=== PATIENT | male | born 1935 | race Asian ===

== ENCOUNTER 2017-11-18 18:12 | Emergency (ER) | payer OTHER ==
[~2017-11-18] VITALS: Ht 154.9 cm; Wt 65.8 kg
--- NOTE | ~2017-11-18 | EKG ---
[place] [address] [facility] [place] [address] ELECTROCARDIOGRAM REPORT Name: BRY PELAYO Room #: DEP ALEJA Hollins#: [id number] Admission: 11/18/17 Attend Phys: Discharge: 11/18/17 Date of : 39 Report #: [id number] THIS REPORT FOR: //name// [facility] ED Test Date: 2017-11-18 Test Time: 18:51:43 Pat Name: BRY PELAYO Department: Room: Gender: M Vending Manager: FAM : 1935 Requested By: José Miguel Jimenez Order Number: [id number] MD: Elliot Villar Measurements Intervals Dawson Rate: 101 P: -10 AR: 186 QRS: -48 QRSD: 85 T: 34 QT: 343 QTc: 445 Interpretive Statements Sinus tachycardia Probable left atrial enlargement Left ventricular hypertrophy Inferior infarct, old No previous ECG available for comparison Electronically Signed On 11-19-2017 8:51:27 CDT by Elliot Villar [email or web address] <ELECTRONICALLY SIGNED> By: Elliot Villar MD, [facility] 11/19/17 0851 1851 185 Elliot Villar MD, FACC /EPI
[~2017-11-18 18:12] MED LIST: CYMBALTA30 MG PO; GLUCOPHAGE1000 MG PO; GLYBURIDE 2.52.5 M1 PO; MOM; RISPERIDONE1 MG/1 ML; SIMVASTATIN40 MG PO
[2017-11-18 19:09] LABS: HEMATOCRIT 45.4 % (42.0-52.0); HEMOGLOBIN 15.5 gm/dL (14.0-18.0); MCH 28.5 pg (26.0-34.0); MCHC 34.1 g/dL (28.0-37.0); MCV 83.4 fL (80.0-100.0); RBC 5.44 mil/uL (4.50-6.00); RDW 13.1 % (10.5-14.5)
[2017-11-18 19:12] LABS: ANION GAP 6 mmol/L (7-16); BUN 21 mg/dL (7-18); CALCIUM 8.5 mg/dL (8.5-10.1); CHLORIDE 105 mmol/L (98-107); CO2 26 mmol/L (21-32); CREATININE 1.3 mg/dL (0.7-1.3); GLUCOSE 316 mg/dL (74-106); POTASSIUM 4.1 mmol/L (3.5-5.1); SODIUM 137 mmol/L (136-145)
[2017-11-18 19:22] LABS: TROPONIN-I < 0.04 ng/mL (<0.06)
[2017-11-18 20:18] LABS: URINE BILIRUBIN NEGATIVE (Negative); URINE BLOOD NEGATIVE (Negative); URINE CLARITY CLEAR; URINE COLOR YELLOW; URINE GLUCOSE-RANDOM* 3+ (Negative); URINE KETONES NEGATIVE (Negative); URINE LEUKOCYTES-REFLEX NEGATIVE (Negative); URINE NITRITE-REFLEX NEGATIVE (Negative); URINE PROTEIN (DIPSTICK) TRACE (Negative); URINE UROBILINOGEN 0.2 E.U./dl (0.2-1.0)
[2017-11-18 22:45] VITALS: BP 154/82
== END 2017-11-18 23:16 | disposition home or self-care (01) ==
LOC: ER 18:12
PROVIDERS: Emergency Medicine
DX: R53.1 Weakness (principal); E78.5 Hyperlipidemia, unspecified; G20 Parkinson's disease; F32.9 Major depressive disorder, single episode, unspecified; F41.9 Anxiety disorder, unspecified; E11.9 Type 2 diabetes mellitus without complications

== ENCOUNTER 2018-01-26 18:02 | Inpatient (IN) | payer OTHER ==
[~2018-01-26] VITALS: Ht 165.1 cm; Wt 59.9 kg
--- NOTE | ~2018-01-26 | HC ---
[facility] [place] [address] CONSULTATION Name: BRY PELAYO Room #: 354-P [facility] IN M.R.#: [id number] Admission: 01/26/18 Attend Phys: Brenden Goodman Discharge: Date of : 39 Report #: [id number] THIS REPORT FOR: //name// CC: Brenden Ruiz DATE OF SERVICE: 01/27/2018 INFECTIOUS DISEASE CONSULTATION ATTENDING PHYSICIAN: Brenden Goodman MD REASON FOR CONSULTATION: Aspiration pneumonia, fever. HISTORY OF PRESENT ILLNESS: An 82-year-old man is admitted with altered mental status. All information of this patient is gathered from the review of records. PAST MEDICAL HISTORY: Dyslipidemia, right eye blindness, Parkinson disease, psychosis, weakness, paranoid schizophrenia. 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 Review of the CT scan of the chest revealed the patient had bronchiectasis and possible pneumonia. The patient has multiple skin lesions that may be compatible with neurofibromatosis. Obviously, a skin biopsy is in order to determine this. Obviously, this will have no bearing on the patient's care. DRUG ALLERGIES: None listed. MEDICATIONS: The patient is currently on treatment with Zosyn 3.37 g IV every 8 hours, vancomycin 500 mg IV every 12 hours, Levaquin 750 mg IV every 48 hours, methylprednisolone 40 mg IV every 8 hours, enoxaparin 40 mg subQ at bedtime, albuterol inhalation treatment, p.r.n. glucose, glucagon, famotine 20 mg IV daily, p.r.n. ondansetron, p.r.n. acetaminophen. SOCIAL HISTORY: Resident of a local fpc and has a state guardianship. FAMILY HISTORY: Unable to obtain. REVIEW OF SYSTEMS: Unable to obtain. PHYSICAL EXAMINATION: VITAL SIGNS: The patient's temperature is 100.1, pulse 93, respirations 26, BP 119/68. Height 5 feet 5 inches, weight 132 pounds, O2 saturation 92-96% on 4 liters oxygen nasal cannula. [facility] [address] [place] [address] CONSULTATION Name: BRY PELAYO Room #: 354-P ADM IN M.R.#: [id number] Admission: 01/26/18 Attend Phys: Brenden Goodman Discharge: Date of : 39 Report #: [id number] HEENMT: Clouding of lenses, right eye. Small pinpoint size, left-sided pupil. Mouth, edentulous. NECK: Supple. LUNGS: Crackles in posterior lung garcia. HEART: S1, S2. ABDOMEN: Multiple skin lesions on abdominal wall that may be neurofibromas or papillomas. Favor neurofibromas in view that he has hyperpigmentation on the back as well. The abdomen is soft, no masses or megaly. GENITALIA: Deferred. RECTAL: Deferred. EXTREMITIES: No clubbing or cyanosis. NEUROLOGIC: Unable to evaluate. LABORATORY DATA: Sodium 137, potassium 3.7, BUN 14, creatinine 1.1, glucose 244, calcium 7.8. WBC 9.2, hemoglobin 14.4, platelets 182,000. Urinalysis revealed glycosuria, ketonuria, possibly blood, 1-9 bacteria per HPF. ABGs, pH 7.44, pCO2 of 36, pO2 of 67, bicarbonate 24.7, these set of gases on 4 liters oxygen nasal cannula. RADIOLOGY EVALUATION: Chest x-ray, cardiomegaly, no acute process. CT scan of the brain revealed microvascular disease compatible with lacunar infarcts. CT scan of the chest revealed bronchiectasis, bronchitis, no pleural effusion, no acute osseous abnormalities. ASSESSMENT: 1. Altered mental status secondary to respiratory insufficiency flare. 2. Bronchiectasis, question aspiration pneumonia. 3. 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 4. Question Von Recklinghausen's disease, neurofibromatosis. SUGGESTIONS: I agree with choice of antibiotics. We will continue triple antibiotic coverage for treatment of possible healthcare-associated pneumonia. Obtain MRSA screen. Dr. Goodman, thank you for requesting my suggestions. <ELECTRONICALLY SIGNED> By: Michael Lawton MD 01/27/18 1132 [id number] [id number] Michael Lawton MD /nt
--- NOTE | ~2018-01-26 | EKG ---
[address] [address] ELECTROCARDIOGRAM REPORT Name: GITABRY Room #: 354-P ADM IN M.R.#: [id number] Admission: 01/26/18 Attend Phys: Brenden Goodman Discharge: Date of : 39 Report #: [id number] THIS REPORT FOR: //name// [facility] ED Test Date: 2018-01-26 Test Time: 19:12:09 Pat Name: BRY PELAYO Department: Room: Gender: M Jitterbug Operator: chucho : 1935 Requested By: José Miguel Jimenez Order Number: [id number] MD: Elliot Villar Measurements Intervals Arvin Rate: 115 P: 4 NM: 162 QRS: -32 QRSD: 81 T: 60 QT: 324 QTc: 448 Interpretive Statements Sinus tachycardia Atrial premature complex Left axis deviation Probable anteroseptal infarct, old Baseline wander in lead(s) V2,V3 Compared to ECG 11/18/2017 18:51:43 Atrial premature complex(es) now present Electronically Signed On 01-28-2018 8:40:19 CDT by Elliot Villar [email or web address] <ELECTRONICALLY SIGNED> By: Elliot Villar MD, [facility] 01/28/18 0840 11 11 Elliot Villar MD, [facility] /EPI
[2018-01-26 18:06] VITALS: BP 118/68
[2018-01-26 18:27] LABS: ABSOLUTE NEUTROPHILS 7.9 thou/uL (1.4-8.2); BASOPHILS 0.3 % (0.0-2.0); EOSINOPHILS 0.5 % (0.0-3.0); HEMATOCRIT 43.3 % (42.0-52.0); HEMOGLOBIN 14.6 gm/dL (14.0-18.0); LYMPHOCYTES 5.1 % (24.0-44.0); MCH 27.5 pg (26.0-34.0); MCHC 33.7 g/dL (28.0-37.0); MCV 81.6 fL (80.0-100.0); PLATELET COUNT 171 thou/uL (150-400); POLYS 83.1 % (36.0-66.0); RDW 13.3 % (10.5-14.5); WBC 9.5 thou/uL (4.0-11.0)
[2018-01-26 18:36] LABS: CALCIUM 8.3 mg/dL (8.5-10.1); CREATININE 1.3 mg/dL (0.7-1.3); POTASSIUM 3.7 mmol/L (3.5-5.1)
[2018-01-26 18:49] LABS: HCO3 24.7 mmol/L (22.0-26.0); PCO2 36.5 mmHg (35.0-45.0); PO2 67.9 mmHg (80.0-100.0); pH 7.448 (7.360-7.450); sO2 94.4 % (92.0-98.0)
[2018-01-26 20:37] LABS: URINE BILIRUBIN NEGATIVE (Negative); URINE BLOOD 2+ (Negative); URINE CLARITY CLEAR; URINE COLOR YELLOW; URINE GLUCOSE-RANDOM* 3+ (Negative); URINE KETONES 1+ (Negative); URINE LEUKOCYTES-REFLEX NEGATIVE (Negative); URINE NITRITE-REFLEX NEGATIVE (Negative); URINE PROTEIN (DIPSTICK) TRACE (Negative)
[2018-01-26 20:47] LABS: BACTERIA-REFLEX 1-9 Few /HPF (None Seen); CASTS None Seen /LPF (None Seen); CRYSTALS None Seen /LPF (None Seen); SQUAMOUS None Seen /LPF (0-3); URINE RBC 0-2 Rare /HPF (0-2); URINE WBC-REFLEX None Seen /HPF (0-5)
[2018-01-26 22:00] VITALS: BP 154/88
[2018-01-26 22:07] VITALS: BP 142/75
[2018-01-27 01:12] LABS: HEMATOCRIT 41.8 % (42.0-52.0); HEMOGLOBIN 14.4 gm/dL (14.0-18.0); MCH 28.1 pg (26.0-34.0); MCHC 34.5 g/dL (28.0-37.0); MCV 81.5 fL (80.0-100.0); RBC 5.13 mil/uL (4.50-6.00); RDW 13.1 % (10.5-14.5); WBC 9.2 thou/uL (4.0-11.0)
[2018-01-27 01:30] LABS: CALCIUM 7.8 mg/dL (8.5-10.1); CREATININE 1.1 mg/dL (0.7-1.3); POTASSIUM 3.7 mmol/L (3.5-5.1); TROPONIN-I 0.09 ng/mL (<0.06)
[2018-01-27 04:40] VITALS: BP 141/69
[2018-01-27 08:40] VITALS: BP 127/68
[2018-01-27 13:12] VITALS: BP 135/72
[2018-01-27 16:36] VITALS: BP 135/69
[2018-01-27 20:06] VITALS: BP 131/66
[2018-01-28 04:05] VITALS: BP 127/64
[2018-01-28 05:17] LABS: HEMATOCRIT 38.3 % (42.0-52.0); HEMOGLOBIN 13.1 gm/dL (14.0-18.0); MCHC 34.2 g/dL (28.0-37.0); MCV 81.7 fL (80.0-100.0); RBC 4.69 mil/uL (4.50-6.00); RDW 13.3 % (10.5-14.5); WBC 10.7 thou/uL (4.0-11.0)
[2018-01-28 06:09] LABS: TSH 0.233 uIU/mL (0.358-3.740)
[2018-01-28 07:38] VITALS: BP 154/84
[2018-01-28 11:16] VITALS: BP 156/83
[2018-01-28 16:15] VITALS: BP 156/80
[2018-01-28 20:10] VITALS: BP 147/71
[2018-01-29 05:00] VITALS: BP 136/69
[2018-01-29 07:26] VITALS: BP 175/92
[2018-01-29] MEDS ORDERED: AUGMENTIN 400-1 EACH PO (08:43)
[2018-01-29 11:45] VITALS: BP 166/83
== END 2018-01-29 15:28 | DRG 871 ==
LOC: ER 18:02 → EROBS 20:43 → 3W 23:15
PROVIDERS: Emergency Medicine; Hospitalist; Nurse Practitioner Family
DX: A41.9 Sepsis, unspecified organism (principal); J96.01 Acute respiratory failure with hypoxia; G93.41 Metabolic encephalopathy; J69.0 Pneumonitis due to inhalation of food and vomit; F20.0 Paranoid schizophrenia; E87.2 Acidosis; E46 Unspecified protein-calorie malnutrition; B37.89 Other sites of candidiasis; E78.5 Hyperlipidemia, unspecified; G20 Parkinson's disease; F32.9 Major depressive disorder, single episode, unspecified; F41.9 Anxiety disorder, unspecified; E11.9 Type 2 diabetes mellitus without complications; Y95 Nosocomial condition; J40 Bronchitis, not specified as acute or chronic; J47.9 Bronchiectasis, uncomplicated; F09 Unspecified mental disorder due to known physiological condition; F03.90 Unspecified dementia, unspecified severity, without behavioral disturbance, psychotic disturbance, mood disturbance, and anxiety; H54.8 Legal blindness, as defined in USA; Z79.899 Other long term (current) drug therapy; Z68.22 Body mass index [BMI] 22.0-22.9, adult
CPT/HCPCS: 10879

== ENCOUNTER → 2018-02-02 | Outpatient (CLI) | payer OTHER ==
[~2018-02-02] MED LIST changes: +AUGMENTIN 400-1 EACH PO; +GLUCOTROL5 MG PO; +GLYBURIDE 2.52.5 MG PO; +METFORMIN HCL500 MG PO; +RISPERDAL50 MG/2 ML IM; +ROCEPHIN 11 GM/1001 IM
== END ==
LOC: RAD 10:09 → SPEECH 10:09 → RAD 10:37
DX: J69.0 Pneumonitis due to inhalation of food and vomit (principal); R13.12 Dysphagia, oropharyngeal phase; F20.0 Paranoid schizophrenia; G21.8 Other secondary parkinsonism; H54.40 Blindness, one eye, unspecified eye; H26.9 Unspecified cataract; E11.9 Type 2 diabetes mellitus without complications; E78.5 Hyperlipidemia, unspecified; G20 Parkinson's disease

== ENCOUNTER 2018-02-03 20:47 | Inpatient (IN) | payer OTHER ==
[~2018-02-03] VITALS: Ht 152.4 cm; Wt 58.2 kg
[~2018-02-03 20:47] MED LIST changes: -GLUCOTROL5 MG PO; -GLYBURIDE 2.52.5 MG PO; -METFORMIN HCL500 MG PO; -RISPERDAL50 MG/2 ML IM
[2018-02-03 20:49] VITALS: BP 175/100
[2018-02-03] MEDS ORDERED: GLUCOTROL5 MG PO (20:58)
[2018-02-03] MEDS ORDERED: METFORMIN HCL500 MG PO (20:58)
[2018-02-03] MEDS ORDERED: RISPERDAL50 MG/2 ML IM (20:59)
[2018-02-03] MEDS ORDERED: ROCEPHIN 11 GM/1001 IM (21:01)
[2018-02-03 21:16] LABS: HEMATOCRIT 44.9 % (42.0-52.0); HEMOGLOBIN 15.2 gm/dL (14.0-18.0); MCH 27.5 pg (26.0-34.0); MCHC 33.8 g/dL (28.0-37.0); MCV 81.5 fL (80.0-100.0); PLATELET COUNT 173 thou/uL (150-400); RBC 5.51 mil/uL (4.50-6.00); RDW 13.1 % (10.5-14.5); WBC 12.6 thou/uL (4.0-11.0)
[2018-02-03] MEDS ORDERED: GLYBURIDE 2.52.5 MG PO (21:22)
[2018-02-03 21:24] LABS: CALCIUM 8.2 mg/dL (8.5-10.1); CREATININE 0.9 mg/dL (0.7-1.3); POTASSIUM 3.9 mmol/L (3.5-5.1)
[2018-02-03 21:39] LABS: ANISOCYTOSIS 1+
[2018-02-03 23:09] VITALS: BP 185/92
[2018-02-03 23:37] VITALS: BP 183/98
[2018-02-04 05:14] VITALS: BP 118/65
[2018-02-04 05:59] LABS: HEMATOCRIT 39.6 % (42.0-52.0); HEMOGLOBIN 13.3 gm/dL (14.0-18.0); MCH 27.5 pg (26.0-34.0); MCHC 33.6 g/dL (28.0-37.0); MCV 81.8 fL (80.0-100.0); RBC 4.84 mil/uL (4.50-6.00); RDW 13.1 % (10.5-14.5)
[2018-02-04 06:06] LABS: INR 1.1; PROTIME 10.8 Seconds (9.3-11.4)
[2018-02-04 06:10] LABS: ALBUMIN 2.1 g/dL (3.4-5.0); CALCIUM 7.8 mg/dL (8.5-10.1); CREATININE 0.9 mg/dL (0.7-1.3); POTASSIUM 3.8 mmol/L (3.5-5.1); TOTAL BILIRUBIN 1.3 mg/dL (<0.1-1.0); TOTAL PROTEIN 5.6 g/dL (6.4-8.2)
[2018-02-04 07:20] VITALS: BP 117/68
[2018-02-04] MEDS ORDERED: AUGMENTIN 400-1 EACH PO (09:24)
[2018-02-04 16:30] VITALS: BP 136/72
== END 2018-02-04 18:21 | DRG 178 ==
LOC: ER 20:47 → EROBS 22:16 → 4W 23:18
PROVIDERS: Nurse Practitioner Acute Care; Physician Assistant
DX: J69.0 Pneumonitis due to inhalation of food and vomit (principal); E46 Unspecified protein-calorie malnutrition; E11.9 Type 2 diabetes mellitus without complications; F20.9 Schizophrenia, unspecified; F41.9 Anxiety disorder, unspecified; F02.80 Dementia in other diseases classified elsewhere, unspecified severity, without behavioral disturbance, psychotic disturbance, mood disturbance, and anxiety; F32.9 Major depressive disorder, single episode, unspecified; E78.5 Hyperlipidemia, unspecified; G20 Parkinson's disease; Y95 Nosocomial condition; Z79.84 Long term (current) use of oral hypoglycemic drugs; Z79.899 Other long term (current) drug therapy; Z79.4 Long term (current) use of insulin; Z68.25 Body mass index [BMI] 25.0-25.9, adult
CPT/HCPCS: 10045

== ENCOUNTER 2018-11-13 16:38 | Inpatient (IN) | payer OTHER ==
[~2018-11-13] VITALS: Ht 157.5 cm; Wt 57.6 kg
[2018-11-13] VITALS (8 sets, daily range): BP systolic 119–160; BP diastolic 57–78
[~2018-11-13 16:38] MED LIST changes: +GLUCOTROL5 MG PO; +GLYBURIDE 2.52.5 MG PO; +METFORMIN HCL500 MG PO; +RISPERDAL50 MG/2 ML IM
[2018-11-13 16:57] LABS: HEMATOCRIT 44.7 % (42.0-52.0); MCH 27.1 pg (26.0-34.0); MCHC 33.5 g/dL (28.0-37.0); MCV 80.9 fL (80.0-100.0); PLATELET COUNT 183 thou/uL (150-400); RBC 5.53 mil/uL (4.50-6.00); RDW 13.4 % (10.5-14.5); WBC 16.2 thou/uL (4.0-11.0)
[2018-11-13 17:10] LABS: BE(vivo) 1.7 mmol/L (-2 to +3); PCO2 39.8 mmHg (35.0-45.0); PO2 63.4 mmHg (80.0-100.0); pH 7.433 (7.360-7.450); sO2 92.9 % (92.0-98.0)
[2018-11-13 17:11] LABS: PROTIME 10.1 Seconds (9.3-11.4)
[2018-11-13 17:12] LABS: CALCIUM 8.5 mg/dL (8.5-10.1); CREATININE 1.2 mg/dL (0.7-1.3); POTASSIUM 3.8 mmol/L (3.5-5.1)
[2018-11-13 17:19] LABS: ABSOLUTE NEUTROPHILS 14.9 thou/uL (1.4-8.2)
[2018-11-13 17:21] LABS: ALBUMIN 2.7 g/dL (3.4-5.0); MAGNESIUM 1.8 mg/dL (1.8-2.4); TOTAL BILIRUBIN 0.5 mg/dL (<0.1-1.0); TOTAL PROTEIN 7.1 g/dL (6.4-8.2); TROPONIN-I 0.07 ng/mL (<0.06)
[2018-11-13] MEDS ORDERED: FEVERALL120 MG RECTAL (17:40)
[2018-11-13] MEDS ORDERED: LEVSIN0.125 MG PO (17:42)
[2018-11-13] MEDS ORDERED: SILTUSSIN100 MG/5 M PO (17:43)
[2018-11-13] MEDS ORDERED: IPRAT-ALBUT 0.5-3 ML INH (17:44)
[2018-11-13] MEDS ORDERED: RISPERDAL50 MG/2 ML IM (17:46)
--- NOTE | 2018-11-13 20:30 | NUR ---
83 Y/O PT ADMITTED TO ICU FROM ER WITH RESP DISTRESS. NONVERBAL. ONLY MOANS LUNGS VERY CONGESTED. COARSE RHONCH BIALT. SUCTIONED ORALLY FOR THICK BEIGE SECRETIONS. SINUS RHYTHM. PT IS CURRENTLY A DNR AND WAS RECENTLY ON HOSPICE. WILL CONT TO MONITOR.
[2018-11-14] VITALS (17 sets, daily range): BP systolic 98–154; BP diastolic 42–76
[2018-11-14 05:26] LABS: HEMATOCRIT 42.9 % (42.0-52.0); HEMOGLOBIN 13.8 gm/dL (14.0-18.0); MCH 26.6 pg (26.0-34.0); MCHC 32.2 g/dL (28.0-37.0); MCV 82.5 fL (80.0-100.0); RBC 5.2 mil/uL (4.50-6.00); RDW 13.9 % (10.5-14.5)
[2018-11-14 05:49] LABS: CALCIUM 7.7 mg/dL (8.5-10.1); CREATININE 0.8 mg/dL (0.7-1.3); MAGNESIUM 1.9 mg/dL (1.8-2.4); POTASSIUM 3.9 mmol/L (3.5-5.1); TROPONIN-I 0.09 ng/mL (<0.06)
--- NOTE | 2018-11-14 08:56 | EKG ---
[place] [address] [facility] [employer] [address] ELECTROCARDIOGRAM REPORT Name: PAUL PELAYORADHA Room #: 239-P ADM IN M.R.#: [id number] ������������������ Admission: 11/13/18 ������������������ Attend Phys: Brenden Goodman Discharge: ������������������ Date of : 39 Report #: [id number] ����������������������������������������������������������������� [id number] THIS REPORT FOR: //name// [facility] ED Test Date: 2018-11-13 Test Time: 17:28:01 Pat Name: BRY PELAYO Department: Room: 239 Gender: M Associate Marketing Manager: [facility] : 1935 Requested By: Douglas Avila Order Number: [id number] MD: Elliot Villar Measurements Intervals Buchanan Rate: 112 P: 8 PA: 170 QRS: -41 QRSD: 81 T: 54 QT: 321 QTc: 438 Interpretive Statements Sinus tachycardia Atrial premature complex Left anterior fascicular block Poor R wave progression Compared to ECG 01/26/2018 19:12:09 Ventricular premature complex(es) now present Electronically Signed On 11-14-2018 8:56:16 CDT by Elliot Villar [email or web address] ��������������������������������������������� <ELECTRONICALLY SIGNED> ���������������������������������������� By: Elliot Villar MD, [facility] ��������������������������������������������� 11/14/18 0856 1728 1728 Elliot Villar MD, [facility] /EPI
--- NOTE | 2018-11-14 10:48 | NUR ---
INITIAL ASSESSMENT: Pt evaluated for d/c planning needs. Pt has [facility] Public Inhalation Therapist as guardian. Spoke with Eric Melvin at Public Inhalation Therapist's office. He said that someone from [facility] had notified him of pt's admission to the hospital. Pt is a jail resident at [facility] and was hospitalized at [facility] in January 2018 and returned back to facility with [facility]. Pt was doing well per Eric, and hospice was discontinued. Plan is for pt to return to [facility] on d/c from hospital. Will need to notify Public Inhalation Therapist of d/c.
--- NOTE | 2018-11-15 05:20 | NUR ---
Pt was confused and combative earlier during noc shift. pt refused being hooked up to the monitor and pull his 2 IVs out. Erika Faith Pathology Secretary/Transcriptionist called for orders to help calm pt down. pt was given Zyprexa Im. Pt was able to calm down and relax for IV and medications the rest of the night. He was sating 92% on RA and occassionally suctions himself and use a face mask for comfort. [facility].
--- NOTE | 2018-11-15 05:42 | NUR ---
REPORT TO DIALLO FRIEND TO TRANSFER TO MS ROOM 430
[2018-11-15 06:21] VITALS: BP 175/79
[2018-11-15 07:52] LABS: HEMATOCRIT 39.9 % (42.0-52.0); MCH 26.8 pg (26.0-34.0); MCHC 32.7 g/dL (28.0-37.0); MCV 82.1 fL (80.0-100.0); RBC 4.86 mil/uL (4.50-6.00); RDW 14.3 % (10.5-14.5); WBC 11.6 thou/uL (4.0-11.0)
--- NOTE | 2018-11-15 07:58 | NUR ---
Chart reviewed. Hx parkinsons, depression, schizophrenia, hx wt loss. Admit with possible aspiration pneumonia and hospice consideration. Held NPO for now. Defer further nutrition assessment at this time but available upon consult.
[2018-11-15 08:03] LABS: CALCIUM 7.8 mg/dL (8.5-10.1)
[2018-11-15 16:16] VITALS: BP 167/77
--- NOTE | 2018-11-15 18:39 | NUR ---
PT DOING SOME BETTER. STRONG PRODUCTIVE COUGH. WHITE, THICK. MORE AWAKE THIS AFTERNOON. ASSISTED W/ PAD CHANGE AND TURNING. USING YANKAUR FOR SUCTION AFTER COUGHING. STILL W/ NRB MASK AT 15L. O2 97%. PCXR ORDERED PER DR. FLORES. LOW GRADE TEMP.
[2018-11-15 22:14] VITALS: BP 170/60
[2018-11-16 02:59] VITALS: BP 152/60
[2018-11-16 05:44] LABS: ALBUMIN 1.8 g/dL (3.4-5.0); CALCIUM 7.4 mg/dL (8.5-10.1); CREATININE 0.8 mg/dL (0.7-1.3); PHOSPHORUS 2.8 mg/dL (2.5-4.9); POTASSIUM 3.9 mmol/L (3.5-5.1)
--- NOTE | 2018-11-16 06:01 | NUR ---
PT HAS BEEN TURNED/REPOSITIONED EVERY 2 HOURS, SKIN INTACT, HAS NUMEROUS SKIN TAGS, INCONTINENT, PERICARE PROVIDED, KEPT ON VENT 50% ON 15 L OXYGEN, GIVEN MORPHINE LAST NOC DUE TO NOTED AIR HUNGER, PT RESTED GOOD, PT ALERT AND FOLLOWS COMMANDS DURIN TURNING/REPOSITIONING, KEPT NPO, ORAL CARE DONE, HOURLY ROUNDING, MONITORED. 5
--- NOTE | 2018-11-16 09:22 | NUR ---
PT A&O TO SELF AND SITUATION. IV INTACT X2 IN R FA IFUSING FLUIDS AND ANTIBIOTICS. HERRING MASK IN PLACE AT 15L. LS RHONCI. PT NEEDS UA AND IS INCONT. OF URINE. PT STRAIGHT CATHED BY JOB PLACEMENT OFFICER AND INSTRUCTOR. WILL CONTINUE POC.
[2018-11-16 09:53] LABS: URINE BILIRUBIN NEGATIVE (Negative); URINE BLOOD NEGATIVE (Negative); URINE CLARITY CLEAR; URINE COLOR YELLOW; URINE GLUCOSE-RANDOM* 2+ (Negative); URINE KETONES 1+ (Negative); URINE LEUKOCYTES-REFLEX NEGATIVE (Negative); URINE NITRITE-REFLEX NEGATIVE (Negative); URINE PROTEIN (DIPSTICK) TRACE (Negative); URINE SPECIFIC GRAVITY >= 1.030 (1.005-1.035)
[2018-11-16 11:27] VITALS: BP 166/58
[2018-11-16 19:47] VITALS: BP 176/70
--- NOTE | 2018-11-17 05:32 | NUR ---
RESTLESS AT TIMES, EASILY REDIRECTABLE, INCONTINENT OF URINE, NO BM PASSED, LUNG SOUNDS VERY TIGHT, CALLED TO [facility] PALENCIA, STARTED ON BREATHING TREATMENT, TURNED AND REPOSITIONED, PT FOLLOWS COMMANDS, SCDS ON AND KEPT ON REMOVING THEM, ORAL CARE GIVEN, MONITORED.
[2018-11-17 06:32] VITALS: BP 134/81
[2018-11-17 08:23] VITALS: BP 204/86
[2018-11-17 17:44] VITALS: BP 205/76
[2018-11-17 22:57] VITALS: BP 175/66
--- NOTE | 2018-11-18 04:04 | NUR ---
ASSUMED CARE FROM DAY SHIFT PT PULL BOTH IV OUT AND TOOK O2 OFF FACE , PT PING AGITATED AND RESTLESS , ELECTRIC TRUCK DRIVER CALLED AND RECIEVED ONETIME DOSE OF HALDOL. MED GIVEN AND PT WAS TO SETTLE DOWN IVS REPLACED FOR IV MEDICATION AND FLUIDS. MALE EXTERNAL CATHETER PLACED, PT POSTIONED FOR COMFORT. BED ALARM AND BED RAIL UP DUE TO PT IMPULSIVENESS. WILL CONINTUE WITH CURRENT PLAN OF CARE AND REPORT CHANGES OR ABNORMAL FINDINGS.
[2018-11-18 05:38] VITALS: BP 193/66
[2018-11-18 07:40] VITALS: BP 203/168
[2018-11-18 07:49] VITALS: BP 193/66
--- NOTE | 2018-11-18 09:39 | NUR ---
PT A&O TO SELF, IV INTACT X2 IN R FA INFUSING IV FLUIDS W/O COMPS. PT IS COMBATIVE AND TRYING TO PULL IV'S OUT. PT HAVING HIGH BP IN LAST SENERAL HOURS. NOTIFIED, RECEIVED ORDERS FOR BP, AGITATION. WILL CONT TO MONITOR PT CLOSELY, BED ALARM IS ON.
[2018-11-18] MEDS ORDERED: CLONIDINE1 EAC1 TRANSDERM (13:57)
[2018-11-18] MEDS ORDERED: SEROQUEL 25 MG25 M1 PO (14:00)
--- NOTE | 2018-11-18 14:44 | NUR ---
Following for d/c planning needs. Spoke with Eric Melvin at Public Manager Of Human Resources's office. He spoke with Dr Goodman. Plan is for pt to return to [facility] with [facility]. PA is agreeable with plans. Orders written. funeral planner to arrange ambulance transport. No other needs identified.
--- NOTE | 2018-11-18 16:02 | NUR ---
PT DISCHARGING TODAY BACK TO [facility] WITH [facility]. FAXED DC ORDERS/SUMMARY TO FACILITY LEFT MS WITH SOILA IN ADM THAT DC ORDERS FAXED AND TRANSPORT PER AMBULANCE SET BETWEEN [phone] THROUGH [facility] TRIP #[id number]. PA NOTIFIED BY SW OF DC PLANS AND IS AGREEABLE. UNIT NOTIFIED AND CHART COPY PER US. RN TO CALL REPORT TO [phone].
--- NOTE | 2018-11-18 16:02 | NUR ---
PT HAS BEEN DC'D BACK TO [facility] WITH HOSPICE. IV REMOVED FROM R FA X2. ATTEMPT TO GIVE REPORT TO DON AT THE FACILITY WAS UNSUCESSFUL. EMS TRANSPORTED PT VIA CART REPORT GIVEN TO EMS.
--- NOTE | 2018-11-18 17:20 | HC ---
[facility] [place] [address] CONSULTATION Name: BRY PELAYO Room #: 430-P [facility] IN M.R.#: [id number] Admission: 11/13/18 ������������������ Attend Phys: Brenden Goodman Discharge: 11/18/18 ������������������ Date of : 39 Report #: [id number] THIS REPORT FOR: //name// CC: Brenden Ruiz DATE OF SERVICE: 11/14/2018 REFERRING PHYSICIAN: Dr. Goodman. REASON FOR REFERRAL: Pneumonia. HISTORY OF PRESENT ILLNESS: The patient is an 83-year-old male who was brought to the ED with altered mental status. He was felt to have pneumonia. A pulmonary consultation was requested. The patient is not able to provide much history. No family member is available. Most of the history is obtained from the records. The patient currently resides at [facility]. On the day of admission, he was found to be unresponsive. He was tachypneic. EMS was called. In the ER, the patient was found to be hypoxic. He was placed on nonrebreather. Chest x-ray showed mild bilateral interstitial infiltrates. PAST MEDICAL HISTORY: Includes history of Parkinson's, history of psychosis, depression, anxiety disorder, paranoid schizophrenia, generalized weakness with history of falls, mild ascending thoracic aneurysm measuring 4.4 cm in diameter, diabetes mellitus type 2, controlled with diet, tardive dyskinesia. PAST SURGICAL HISTORY: As above. ALLERGIES: None to medications. MEDICATIONS LIST: Reviewed in the MAR. FAMILY HISTORY: Unknown. SOCIAL HISTORY: No tobacco or alcohol use. Resides in a snf. REVIEW OF SYSTEMS: Deferred as the patient is not able to provide much history. PHYSICAL EXAMINATION: GENERAL: He is awake, appears weak, moaning. VITAL SIGNS: His temperature is 98 degrees Fahrenheit, pulse is 80, respiratory rate is 16, blood pressure 175/79 mmHg, saturation is 100%. [facility] [address] [place] [address] CONSULTATION Name: BRY PELAYO Room #: 430-P [facility] IN [facility].#: [id number] Admission: 11/13/18 ������������������ Attend Phys: Brenden Neville Maxine Discharge: 11/18/18 ������������������ Date of : 39 Report #: [id number] HEENT: Normocephalic, atraumatic. NECK: Supple, without lymphadenopathy or thyromegaly. CHEST: Breath sounds are fair due to poor effort. Few scattered crackles are heard in the bases. No obvious wheezes. CARDIOVASCULAR: No obvious murmurs or gallop. Pulses are 2+/4+ bilaterally. ABDOMEN: Soft, nontender, no organomegaly or masses felt. GENITOURINARY: Deferred. RECTAL: Deferred. EXTREMITIES: There is no edema, cyanosis or clubbing. MUSCULOSKELETAL: Notable for moderate cachexia. Influenza A and B swab is negative. LABORATORY DATA: Chest x-ray as mentioned above showing mild increased interstitial markings, mild infiltrates seen in the left lung field area. Electrolytes are grossly unremarkable except for creatinine of 1.2. WBC 18,000, hemoglobin 13.8, platelets are normal. Arterial blood gas revealed pH 7.43, pCO2 of 39, pO2 of 63 on 63. Albumin 2.7. IMPRESSION: 1. Acute hypoxic respiratory failure due to presumed pneumonia, likely aspiration. 2. Parkinson's disease with progressive debility and weakness. 3. History of falls. 4. History of paranoid schizophrenia, depression and anxiety disorder. 5. Malnutrition. 6. Ascending thoracic aneurysm measuring 4.4 cm in diameter. 7. Diabetes mellitus type 2. 8. History of tardive dyskinesia. RECOMMENDATION: Agree with broad-spectrum antibiotics, wean O2 for saturation 90%, DVT and GI prophylaxis, overall appears to be poor given severe comorbid conditions. DNR status noted. If patient's condition deteriorates, hospice may be appropriate for this patient. Thank you for this consultation. ��������������������������������������������� <ELECTRONICALLY SIGNED> ���������������������������������������� By: Yassine Urbina MD ��������������������������������������������� 11/18/18 1720 1142 2258 Yassine Urbina MD /nt
== END 2018-11-18 15:43 | disposition hospice, inpatient (51) | DRG 871 ==
LOC: ER 16:38 → EROBS 18:12 → 4E 18:12 → ICU 20:15 → 4E 11-15 06:09
PROVIDERS: Emergency Medicine; Internal Medicine Pulmonary Disease; ADMIT Hospitalist
DX: A41.9 Sepsis, unspecified organism (principal); J96.01 Acute respiratory failure with hypoxia; J69.0 Pneumonitis due to inhalation of food and vomit; E46 Unspecified protein-calorie malnutrition; Z51.5 Encounter for palliative care; Z66 Do not resuscitate; E78.5 Hyperlipidemia, unspecified; H54.40 Blindness, one eye, unspecified eye; G20 Parkinson's disease; E11.65 Type 2 diabetes mellitus with hyperglycemia; Y95 Nosocomial condition; I71.2 Thoracic aortic aneurysm, without rupture; F32.9 Major depressive disorder, single episode, unspecified; F41.9 Anxiety disorder, unspecified; Z91.81 History of falling; Z68.23 Body mass index [BMI] 23.0-23.9, adult; Z79.84 Long term (current) use of oral hypoglycemic drugs; Z79.899 Other long term (current) drug therapy
CPT/HCPCS: 10078; 10084; 10203